=== PATIENT | male | born 1955 | race Caucasian/White ===

== ENCOUNTER 2020-07-04 10:33 | Outpatient (CLI) | payer BC, SELFPAY | END 2020-07-04 10:34 | disposition home or self-care (01) | LOC: ANHCOVIDVC 10:33 | PROVIDERS: PCP Internal Medicine | DX: Z23 Encounter for immunization (principal) | CPT/HCPCS: 0001A; 91300 ==

== ENCOUNTER 2020-07-25 10:31 | Outpatient (CLI) | payer BC, SELFPAY | END 2020-07-25 10:32 | disposition home or self-care (01) | LOC: ANHCOVIDVC 10:31 | PROVIDERS: PCP Internal Medicine | DX: Z23 Encounter for immunization (principal) | CPT/HCPCS: 0002A; 91300 ==

== ENCOUNTER 2023-01-26 11:16 | Emergency (ER) | payer MEDICARE, SELFPAY ==
[2023-01-26 11:32] VITALS: BP 154/86; PULSE 83; RESP 20; TEMP 36.6; O2SAT 99
[2023-01-26] MEDS: SILVER NITRATE (*SP) STICK 3 EACH (12:51)
--- NOTE | 2023-01-26 12:51 | ED.SKABFB ---
HPI - Skin/Abscess/Foreign Bdy General Chief complaint: Skin/Abscess/Foreign Body Stated complaint: uncontrolled bleeding on skin Time Seen by Provider: 01/26/23 12:50 Source: patient Mode of arrival: ambulatory Limitations: no limitations History of Present Illness HPI narrative: Patient is a 67-year-old male who presents to the ED with report of bleeding from a skin tag. Patient reports he has had a skin tag to his right lateral abdominal wall for some time. Over the last 1 month, it has bled intermittently, 2 other episodes. He was able to control the bleeding at home. He has not tried contacting his doctor about this. Today the patient woke up from his sleep around 6:30 AM and noticed bleeding from the skin tag. He was unable to control the bleeding. Patient is on Xarelto due to history of atrial fibrillation. He denies pain associated with this contact. Denies dizziness, lightheadedness, nausea, vomiting. Related Data Home Medications Medication Instructions Recorded Confirmed albuterol sulfate 90 mcg/actuation 1 inhalation inhalation Q4H 11/06/19 12/23/22 aerosol inhaler (ProAir HFA) amlodipine 10 mg tablet 10 mg PO DAILY 11/06/19 12/23/22 budesonide-formoterol HFA 160 2 puff inhalation Q12H 11/06/19 12/23/22 mcg-4.5 mcg/actuation aerosol inhaler (Symbicort) furosemide 40 mg/5 mL (8 mg/mL) 20 mg PO QAM 11/06/19 12/23/22 oral solution lisinopril 20 mg tablet 20 mg PO DAILY 11/06/19 12/23/22 montelukast 10 mg tablet 10 mg PO DAILY 11/06/19 12/23/22 rivaroxaban 20 mg tablet (Xarelto) 20 mg PO QPM 11/06/19 12/23/22 sotalol 80 mg tablet 80 mg PO DAILY 11/06/19 12/23/22 cetirizine 10 mg capsule (Zyrtec) 10 mg PO DAILY PRN 12/16/20 12/23/22 Allergies Allergy/AdvReac Type Severity Reaction Status Date / Time aspirin AdvReac Unknown Unknown Verified 01/26/23 12:52 Review of Systems Review of Systems: CONSTITUTIONAL: Denies fever, chills, or sweats. SKIN: See HPI. MUSCULOSKELETAL: Denies back pain, joint pain, or myalgia. NEUROLOGIC: See HPI. All systems reviewed & are unremarkable except as noted in HPI and below [facility] Past Medical History Medical History (Updated 01/26/23 @ 13:20 by Malathi Morales PA-C) CHF (congestive heart failure) Hyperglycemia Paroxysmal atrial fibrillation Social History Social History Smoking status: Former smoker Exam Narrative: GENERAL: Well appearing, morbidly obese with BMI of 49.8, non-toxic, in no acute distress. HEAD: Normocephalic, atraumatic. NECK: Supple. No adenopathy, no masses. RESPIRATORY: Airway patent, respirations nonlabored. CARDIOVASCULAR: Regular rate and rhythm without murmurs, rubs, or gallops. Radial pulses 2+ and equal bilaterally. MUSCULOSKELETAL: Moves all extremities. Strength/ROM intact without gross deformities. SKIN: Warm, dry, normal color. No rashes. Pedunculated skin tag to right lateral abdominal wall, thin floppy stalk with marble sized tag of skin. Evidence of vascularity present within skin tag. Pinpoint area of bleeding to tip of skin tag. NEURO: A&O X3. Speech clear. Cranial nerves II-XII grossly intact. Steady gait. No ataxic movements. PSYCHIATRIC: Appropriate mood and affect. Normal interaction. Course Vital Signs Vital signs: Vital Signs Temperature 97.8 F 01/26/23 11:32 Pulse Rate 83 01/26/23 11:32 Respiratory Rate 20 01/26/23 11:32 Blood Pressure 154/86 H 01/26/23 11:32 Pulse Oximetry 99 01/26/23 11:32 Oxygen Delivery Room Air 01/26/23 11:32 Temperature 97.8 F 01/26/23 11:32 Pulse Rate 83 01/26/23 11:32 Respiratory Rate 20 01/26/23 11:32 Blood Pressure 154/86 H 01/26/23 11:32 Pulse Oximetry 99 01/26/23 11:32 Oxygen Delivery Room Air 01/26/23 11:32 MDM - Skin/Abscess/Foreign Bdy MDM Narrative Medical decision making narrative: Patient presented to ED with pedunculated skin tag, pinpoint area of
[2023-01-26] MEDS: CELLULOSE OXIDIZED 2 x 14 INCH 1 PKT XX (12:52)
[2023-01-26] MEDS: SILVER NITRATE (*SP) STICK 1 EACH (12:52)
[2023-01-26] MEDS: LIDO 1%/EPINEPHRINE 1:100,000 50 ML VIAL (12:52)
== END 2023-01-26 13:21 | disposition home or self-care (01) ==
LOC: ANHED 13:26
PROVIDERS: Emergency Provider Physician Assistant; PCP Internal Medicine
DX: L91.8 Other hypertrophic disorders of the skin (principal); I48.0 Paroxysmal atrial fibrillation; I50.9 Heart failure, unspecified; Z79.01 Long term (current) use of anticoagulants
CPT/HCPCS: 99283

== ENCOUNTER 2023-02-05 03:29 | Emergency (ER) | payer MEDICARE, SELFPAY ==
[2023-02-05 03:33] VITALS: BP 157/90; PULSE 74; RESP 18; TEMP 36.8; O2SAT 100
[2023-02-05 03:46] VITALS: BP 130/78; PULSE 71; RESP 19; TEMP 36.6; O2SAT 100
--- NOTE | 2023-02-05 03:52 | PC.NURSE ---
Patient states he is on a blood thinner, Xarelto, for Afib.
[2023-02-05 03:53] VITALS: PULSE 71
--- NOTE | 2023-02-05 05:57 | ED.GENADULT ---
HPI - General Adult General Chief complaint: Skin/Abscess/Foreign Body Stated complaint: skin c/o Time Seen by Provider: 02/05/23 04:16 History of Present Illness HPI narrative: Patient is a 67-year-old gentleman who presents the emergency department with chief complaint of bleeding skin tag. Patient was seen in the emergency department recently and had a skin tag that was cauterized patient states that it started bleeding again this evening the patient is on a DOAC and reports that he was unable to control the bleeding at home. Related Data Home Medications Medication Instructions Recorded Confirmed albuterol sulfate 90 mcg/actuation 1 inhalation inhalation Q4H 11/06/19 12/23/22 aerosol inhaler (ProAir HFA) amlodipine 10 mg tablet 10 mg PO DAILY 11/06/19 12/23/22 budesonide-formoterol HFA 160 2 puff inhalation Q12H 11/06/19 12/23/22 mcg-4.5 mcg/actuation aerosol inhaler (Symbicort) lisinopril 20 mg tablet 20 mg PO DAILY 11/06/19 12/23/22 montelukast 10 mg tablet 10 mg PO DAILY 11/06/19 12/23/22 rivaroxaban 20 mg tablet (Xarelto) 20 mg PO QPM 11/06/19 12/23/22 metoprolol succinate 100 mg 100 mg PO DAILY 02/04/23 tablet,extended release 24 hr Allergies Allergy/AdvReac Type Severity Reaction Status Date / Time aspirin AdvReac Unknown Unknown Verified 02/04/23 15:15 Review of Systems Review of Systems: A 10 system review of systems was completed on the patient and is negative except for what is stated in the HPI. Nursing and ancillary documentation was reviewed. [facility] Past Medical History Medical History CHF (congestive heart failure) Hyperglycemia Paroxysmal atrial fibrillation Social History Social History Smoking status: Former smoker Exam Narrative: GENERAL: Well-appearing, well-nourished, and in no acute distress. HEAD: Normocephalic, atraumatic. EYES: PERRLA and EOMI. ENT: Nares clear, no rhinorrhea or epistaxis. Mucous membranes moist. NECK: Supple. CHEST: Clear to auscultation. No respiratory distress. HEART: Regular rate and rhythm. No murmur heard. Normal peripheral pulses. ABDOMEN: Soft, nontender, nondistended, normal active bowel sounds. EXTREMITIES: Normal range of motion. No edema. SKIN: Warm, dry, no rash. There is a skin tag on the right upper quadrant that has active bleeding from it NEURO: No focal deficits. Alert and oriented x3. PSYCH: Normal mood and affect. Course Vital Signs Vital signs: Vital Signs Temperature 36.8 C 02/05/23 03:33 Pulse Rate 74 02/05/23 03:33 Respiratory Rate 18 02/05/23 03:33 Blood Pressure 157/90 H 02/05/23 03:33 Pulse Oximetry 100 02/05/23 03:33 Oxygen Delivery Room Air 02/05/23 03:33 Temperature 36.6 C 02/05/23 03:46 Pulse Rate 71 02/05/23 03:53 Respiratory Rate 19 02/05/23 03:46 Blood Pressure 130/78 02/05/23 03:46 Pulse Oximetry 100 02/05/23 03:46 Oxygen Delivery Room Air 02/05/23 03:33 Procedures Laceration Laceration 1: Date: 02/05/23 Time: 05:59 Site: chest (Right upper quadrant) Side (If applicable): right Size (cm): 0.5 Description: stellate Depth: simple, single layer Local Anesthetic: lidocaine 1% and with epi Amount of anesthesia used (mL): 5 ====== Skin Level ====== Skin layer closed with: nylon Size (cm): 4-0 Number of sutures: 3 Technique: other (Pursestring) ====== Subcutaneous Layer ====== ====== Muscle Layer ====== ====== Tendon Layer ====== Medical Decision Making Vital Signs Vital Signs: Vital Signs Temperature 36.8 C 02/05/23 03:33 Pulse Rate 74 02/05/23 03:33 Respiratory Rate 18 02/05/23 03:33 Blood Pressure 157/90 H 02/05/23 03:33 Pulse Oximetry 100 02/05/23 03:33 Oxygen Delivery Room Air 01/24
[2023-02-05 06:23] VITALS: BP 122/86; PULSE 61; RESP 17; TEMP 36.6; O2SAT 99
== END 2023-02-05 06:24 | disposition home or self-care (01) ==
PROVIDERS: Emergency Provider Emergency Medicine; PCP Internal Medicine
DX: I86.8 Varicose veins of other specified sites (principal); I50.9 Heart failure, unspecified; I48.0 Paroxysmal atrial fibrillation; Z79.01 Long term (current) use of anticoagulants; Z87.891 Personal history of nicotine dependence
CPT/HCPCS: 12001; 99282